=== PATIENT | female | born 1995 | race Two or more races ===

== ENCOUNTER 2017-07-25 23:09 | Emergency (ER) | payer SELFPAY ==
[2017-07-25 23:46] LABS: #Basophils 0.2 thou/uL (0.0-0.2); #Eosinphils 0.4 thou/uL (0.0-0.7); #Neutrophils 6.5 thou/uL (1.40-6.50); %Basophils 1.4 % (0.0-1.0); %Lymphocytes 33.4 % (21.0-51.0); %Monocytes 8.1 % (0.0-10.0); %Neutrophils 54.2 % (42.0-75.0); Hemoglobin 13.7 g/dL (12.0-16.0); Mean Corpuscular HGB CONC 34.8 g/dL (32.0-36.0); Mean Corpuscular Hemoglobin 34.2 pg (27.0-31.0); Mean Corpuscular Volume 98.2 fl (81.0-99.0); Mean Platelet Volume 7.8 fL (7.4-10.4); Platelet Count 343 thou/uL (130-400); RBC Distribution Width 11.1 % (11.5-14.5); Red Blood Cell (RBC) Count 4.01 mill/uL (4.20-5.40); White Blood Cell (WBC) Count 12.1 thou/uL (4.8-10.8)
[2017-07-25 23:49] LABS: BHCG - Serum POSITIVE (NEGATIVE); Pregs Control Background? CLEAR/WHITE (CLR/WHITE); Pregs Control Bar Appear? YES (CONTROL BAR)
[2017-07-26 00:07] LABS: ALT (SGPT) 9 U/L (8-55); AST (SGOT) 17 U/L (5-34); Albumin 4.3 g/dL (3.5-5.0); Alkaline Phosphatase 55 U/L (40-150); Anion Gap 14 mmol/L (10-20); BUN (Urea Nitrogen) 12 mg/dL (7.0-18.7); Bilirubin, Total 0.2 mg/dL (0.2-1.2); Calc. Creatinine Clearance 0 mL/min (70-130); Carbon Dioxide 25 mmol/L (22-29); Chloride 101 mmol/L (98-107); Estimated GFR-MDRD Greater than 90; Globulin 3.5 g/dL (2.4-3.5); Glucose 98 mg/dL (70-105); Potassium 3.6 mmol/L (3.5-5.1); Protein, Total 7.8 g/dL (6.0-8.3); Sodium 136 mmol/L (136-145)
--- NOTE | 2017-07-26 08:52 | ULT ---
PRELIMINARY REPORT/[facility]/EMERGENCY AFTER HOURS PROCEDURE: EXAM: US , Transvaginal CLINICAL HISTORY: 22 years old, female; Signs and symptoms; Lmp or gestational age (in weeks): 5wks; Antepartum complic ations; Other: Vag spotting, cramping; TECHNIQUE: Real-time transvaginal obstetrical ultrasound of the maternal pelvis and a first trimester with image documentation. Transvaginal imaging was used for better evaluation of the fetus and adnexa . COMPARISON: No relevant prior studies available. FINDINGS: There is an intrauterine gestational sac that contains a yolk sac. Mean gestational sac diameter of 5-6 mm estimates gestational age of around 5 weeks. No definite pole or heart activity identified at this time. These findings are not always definitely seen until 5 1/2 to 6 weeks gestation. Therefore, viability cannot definitely be confirmed or excluded at this time. If there is further question of viability, follow up exam in several days could be helpful. Possible small complex cyst in the right ovary, measuring 15-16 mm, possibly corpus luteum. Trace amount of cul-de-sac fluid. Maternal ovaries/adnexa otherwise appear essentially unremarkable. Blood flow detected in each ovary. The urinary bladder was not completely evaluated/imaged at this time. IMPRESSION: Early intrauterine gestational sac containing a yolk sac, no definite pole identified at this t roberto. See details above. Follow up may be helpful depending on clinical indications. Other details discussed above. Thank you for allowing us to participate in the care of your patient. Dictated and Authenticated by: Ayaz Alvarado MD 07/26/2017 1:49 AM Central Time ([place] & [place]) FINAL REPORT EMERGENCY AFTER HOURS PELVIC ULTRASOUND: Date: 07/26/17 FINDINGS/IMPRESSION: I agree with the findings and impression given in the preliminary report per [facility] physician. There is a small gestational sac in the uterus. This contains a yolk sac, but no definite pole is seen at this time. Estimated gestational age is 5 weeks/2 days. The absence of the pole may be secon rocio to this being a very early . POS: [facility]
== END 2017-07-26 01:30 | disposition home or self-care (01) ==
LOC: ERS 23:09
DX: O20.0 Threatened abortion (principal); Z3A.01 Less than 8 weeks gestation of pregnancy
CPT/HCPCS: 36415; 76856; 80053; 84702; 84703; 85025; 93976